=== PATIENT | male | born 1940 | race Caucasian/White ===

== ENCOUNTER → 2018-04-30 | Outpatient (CLI) | payer MEDICARE, BC ==
[~2018-04-30] MED LIST: ASPIRIN E.C. 8181 MG PO; ATORVASTATIN; CARDURA 2MG2 MG PO; CEPHALEXIN500 M1 PO; CLARITIN 1010 MG/TAB PO; LEVAQUIN 5500 MG/TAB PO; LEVOTHYROXINE PO; LISINOPRIL; METRONIDAZOLE500 MG PO; PRAVACHOL 20MG20 MG PO; SYNTHROID0.125 MG/T PO; VASOTEC20 MG PO
== END ==
LOC: COL.RAD 08:53
DX: M25.551 Pain in right hip (principal)
CPT/HCPCS: J3301; Q9967

== ENCOUNTER → 2018-07-05 | Outpatient (CLI) | payer MEDICARE, BC | LOC: COL.RAD 12:56 | DX: M25.551 Pain in right hip (principal) | CPT/HCPCS: J3301; Q9967 ==

== ENCOUNTER 2019-04-14 09:30 | Outpatient (RCR) | payer MEDICARE, BC | END 2019-04-20 | disposition home or self-care (01) | LOC: WSPT | DX: M25.551 Pain in right hip (principal) ==

== ENCOUNTER 2019-06-30 09:30 | Outpatient (RCR) | payer MEDICARE, BC | END 2019-07-31 | disposition still patient (30) | LOC: WSPT | DX: M25.551 Pain in right hip (principal) ==

== ENCOUNTER 2020-02-09 11:00 | Outpatient (RCR) | payer MEDICARE, BC | END 2020-04-04 | disposition home or self-care (01) | LOC: WSPT | DX: Z96.641 Presence of right artificial hip joint (principal) ==

== ENCOUNTER → 2022-03-31 | Day surgery (SDC) | payer MEDICARE, BC ==
[~2022-03-31] VITALS: Ht 172.7 cm; Wt 78.8 kg
[~2022-03-31] MED LIST changes: +FLOMAX 0.40.4 MG/CAP PO; +LIPITOR20 MG PO; +SYNTHROID0.088 MG/T PO; +TOPROL XL 25MG25 MG PO; +VASOTEC 10M10 MG/TAB PO
[2022-03-31 12:04] VITALS: BP 127/84; PULSE 65; TEMP 97.5
--- NOTE | 2022-03-31 12:28 | NUR ---
1220 - Blood draw sent to lab via [employer]
--- NOTE | 2022-03-31 13:02 | NUR ---
1300 - Per Kaur RN, PT cancelled due to critical lab value after DR notified.
== END ==
LOC: SDCO 10:56
DX: R19.7 Diarrhea, unspecified (principal); Z53.8 Procedure and treatment not carried out for other reasons; R19.4 Change in bowel habit; K90.9 Intestinal malabsorption, unspecified; R15.2 Fecal urgency; Z86.010 Personal history of colon polyps; D69.3 Immune thrombocytopenic purpura; K57.30 Diverticulosis of large intestine without perforation or abscess without bleeding; K64.9 Unspecified hemorrhoids; Z80.0 Family history of malignant neoplasm of digestive organs
CPT/HCPCS: J7120